=== PATIENT | male | born 1960 | race Hispanic/Latino ===

== ENCOUNTER 2018-07-25 10:29 | Inpatient (IN) | payer OTHER ==
[~2018-07-25] VITALS: Ht 167.6 cm; Wt 68.6 kg
[2018-07-25 11:17] LABS: BASOPHILS % (AUTO) 0.3 % (0.0-5.0); EOSINOPHILS % (AUTO) 1.7 % (0.0-8.0); HEMATOCRIT 43.2 % (42-54); LYMPHOCYTES % (AUTO) 23.4 % (21.0-51.0); MEAN CORPUSCULAR HEMOGLOBIN 29.8 pg (27.0-33.0); MEAN CORPUSCULAR HGB CONC 33.6 g/dL (32.0-36.0); MEAN CORPUSCULAR VOLUME 88.6 fL (79-99); MONOCYTES % (AUTO) 6.5 % (3.0-13.0); NEUTROPHILS % (AUTO) 68.1 % (40.0-77.0); PLATELET COUNT (AUTO) 313 K/uL (130-400); RED BLOOD CELL COUNT(AUTO) 4.88 MIL/uL (4.50-6.20); RED CELL DISTRIBUTION WIDTH 13.7 % (11.0-15.5); WHITE BLOOD COUNT (AUTO) 8.7 K/uL (4.8-10.8)
[2018-07-25 11:24] LABS: CREATININE 0.5 mg/dL (0.5-1.5); POTASSIUM 3.8 mmol/L (3.5-5.1)
[2018-07-25 11:28] LABS: ALBUMIN 4.1 g/dL (3.5-5.0); BILIRUBIN,TOTAL 0.5 mg/dL (0.2-1.0); TOTAL PROTEIN, SERUM 8.3 g/dL (6.0-8.3)
[2018-07-25] MEDS ORDERED: SODIUM CHLORIDE 0.9% 1000ML 1,000 ML IV ONE (11:33)
[2018-07-25] MEDS ORDERED: SODIUM CHLORIDE 0.9% 1000ML 1,000 ML IV SCH (12:38)
[2018-07-25 15:00] VITALS: BP 149/110
[2018-07-25] MEDS ORDERED: GLIM4TAB3 PO (16:33)
[2018-07-25] MEDS ORDERED: METF-446 PO (16:33)
[2018-07-25] MEDS ORDERED: FA/M1TAB32 PO (16:33)
[2018-07-25] MEDS ORDERED: ATOR20TA65 PO (16:33)
[2018-07-25] MEDS ORDERED: LISI-617 PO (16:33)
[2018-07-25 20:00] VITALS: BP 160/104
[2018-07-25] MEDS ORDERED: MORPHINE SULFATE 2 MG/ML 1ML SYG ONE (20:33)
[2018-07-25] MEDS: FAMOTIDINE/PF 20 MG/2 ML VIAL IV SCH (20:37)
[2018-07-25] MEDS: LABETALOL HCL 5 MG/ML 20ML VIAL IV PRN (22:15)
[2018-07-26] VITALS (7 sets, daily range): BP systolic 133–163; BP diastolic 93–101
[2018-07-26] MEDS: MORPHINE SULFATE 2 MG/ML 1ML SYG IV PRN ×2 (00:44→23:43)
[2018-07-26 05:31] LABS: BASOPHILS % (AUTO) 0.5 % (0.0-5.0); EOSINOPHILS % (AUTO) 2.6 % (0.0-8.0); HEMATOCRIT 41.1 % (42-54); LYMPHOCYTES % (AUTO) 25.9 % (21.0-51.0); MEAN CORPUSCULAR HEMOGLOBIN 30.6 pg (27.0-33.0); MEAN CORPUSCULAR HGB CONC 34.4 g/dL (32.0-36.0); MEAN CORPUSCULAR VOLUME 89.1 fL (79-99); MONOCYTES % (AUTO) 8.5 % (3.0-13.0); NEUTROPHILS % (AUTO) 62.5 % (40.0-77.0); PLATELET COUNT (AUTO) 317 K/uL (130-400); RED BLOOD CELL COUNT(AUTO) 4.62 MIL/uL (4.50-6.20); RED CELL DISTRIBUTION WIDTH 13.3 % (11.0-15.5); WHITE BLOOD COUNT (AUTO) 8.5 K/uL (4.8-10.8)
[2018-07-26 05:48] LABS: ALBUMIN 3.6 g/dL (3.5-5.0); BILIRUBIN,TOTAL 0.6 mg/dL (0.2-1.0); CREATININE 0.4 mg/dL (0.5-1.5); POTASSIUM 3.7 mmol/L (3.5-5.1); TOTAL PROTEIN, SERUM 7.4 g/dL (6.0-8.3)
[2018-07-26] MEDS ORDERED: DEXTROSE 50%-WATER 50 ML DISP.SYRIN IV ONE (06:06)
[2018-07-26] MEDS ORDERED: DEXTROSE 50%-WATER 50 ML DISP.SYRIN IV PRN (06:15)
[2018-07-26] MEDS ORDERED: GLUCAGON 1MG KIT 1 MG ML IM PRN (06:15)
[2018-07-26] MEDS: DEXTROSE 5 % AND 0.9 % NACL 1,000 ML IV SCH ×2 (06:31→16:15)
[2018-07-26] MEDS: FAMOTIDINE/PF 20 MG/2 ML VIAL IV SCH ×2 (09:00→22:42)
[2018-07-26 16:27] LABS: APPEARANCE,URINE Clear (CLEAR); BILIRUBIN,URINE Negative (NEGATIVE); COLOR,URINE Yellow (YELLOW); GLUCOSE, URINE (UA) Negative (NEGATIVE); KETONES,URINE 40 mg/dL (NEGATIVE); LEUKOCYTE ESTERASE ,URINE Negative (NEGATIVE); NITRATE,URINE Negative (NEGATIVE); OCCULT BLOOD,URINE Negative (NEGATIVE); PH,URINE 5.5 (5.0-8.0); PROTEIN,URINE Negative (NEGATIVE)
[2018-07-26] MEDS: LABETALOL HCL 5 MG/ML 20ML VIAL IV PRN (18:30)
[2018-07-26] MEDS: IPRATROPIUM/ALBUTEROL SULFATE 3 ML SOLUTION IH PRN ×2 (19:14→23:26)
[2018-07-26] MEDS ORDERED: LORAZEPAM 2 MG/ML 1 ML VIAL IVP ONE (23:00)
[2018-07-27] VITALS (13 sets, daily range): BP systolic 140–170; BP diastolic 94–119
[2018-07-27 04:01] LABS: BASOPHILS % (AUTO) 0.5 % (0.0-5.0); EOSINOPHILS % (AUTO) 3.1 % (0.0-8.0); HEMATOCRIT 40.7 % (42-54); LYMPHOCYTES % (AUTO) 24.9 % (21.0-51.0); MEAN CORPUSCULAR HGB CONC 33.7 g/dL (32.0-36.0); MEAN CORPUSCULAR VOLUME 89.1 fL (79-99); MONOCYTES % (AUTO) 9.4 % (3.0-13.0); NEUTROPHILS % (AUTO) 62.1 % (40.0-77.0); PLATELET COUNT (AUTO) 286 K/uL (130-400); RED BLOOD CELL COUNT(AUTO) 4.57 MIL/uL (4.50-6.20); RED CELL DISTRIBUTION WIDTH 13.2 % (11.0-15.5); WHITE BLOOD COUNT (AUTO) 7.8 K/uL (4.8-10.8)
[2018-07-27] MEDS: DEXTROSE 5 % AND 0.9 % NACL 1,000 ML IV SCH ×3 (04:04→21:48)
[2018-07-27 04:10] LABS: CREATININE 0.5 mg/dL (0.5-1.5); POTASSIUM 3.2 mmol/L (3.5-5.1)
[2018-07-27] MEDS: FAMOTIDINE/PF 20 MG/2 ML VIAL IV SCH ×2 (09:01→21:45)
[2018-07-27] MEDS: ENOXAPARIN SODIUM 30 MG/0.3 ML SQ SCH (09:02)
[2018-07-27] MEDS ORDERED: HYDROCORTISONE 2.5% 28GM CREAM TP PRN (10:30)
[2018-07-27] MEDS: LABETALOL HCL 5 MG/ML 20ML VIAL IV PRN (11:33)
[2018-07-27] MEDS: IPRATROPIUM/ALBUTEROL SULFATE 3 ML SOLUTION IH SCH ×3 (14:23→21:32)
[2018-07-27] MEDS ORDERED: LIDOCAINE HCL-MPF 2% 5ML VIAL ONE (18:35)
[2018-07-27] MEDS ORDERED: PROPOFOL 10 MG/ML 20ML VIAL IV ONE (18:35)
[2018-07-27] MEDS ORDERED: SUCCINYLCHOLINE CHLORIDE 20 MG/ML 10 ML VIAL ONE (18:45)
[2018-07-27] MEDS ORDERED: CEFAZOLIN SODIUM 1 GM VIAL ONE (19:00)
[2018-07-27] MEDS: MORPHINE SULFATE 2 MG/ML 1ML SYG IV PRN (21:46)
[2018-07-28] VITALS (7 sets, daily range): BP systolic 127–162; BP diastolic 91–110
[2018-07-28] MEDS: IPRATROPIUM/ALBUTEROL SULFATE 3 ML SOLUTION IH SCH ×6 (02:02→21:56)
[2018-07-28] MEDS: MORPHINE SULFATE 2 MG/ML 1ML SYG IV PRN ×4 (02:22→21:09)
[2018-07-28] MEDS: LABETALOL HCL 5 MG/ML 20ML VIAL IV PRN ×2 (04:35→21:13)
[2018-07-28 04:37] LABS: BASOPHILS % (AUTO) 0.4 % (0.0-5.0); EOSINOPHILS % (AUTO) 1.2 % (0.0-8.0); HEMATOCRIT 42.4 % (42-54); LYMPHOCYTES % (AUTO) 16.2 % (21.0-51.0); MEAN CORPUSCULAR HEMOGLOBIN 30.7 pg (27.0-33.0); MEAN CORPUSCULAR HGB CONC 34.5 g/dL (32.0-36.0); MEAN CORPUSCULAR VOLUME 89.1 fL (79-99); MONOCYTES % (AUTO) 6.9 % (3.0-13.0); NEUTROPHILS % (AUTO) 75.3 % (40.0-77.0); PLATELET COUNT (AUTO) 325 K/uL (130-400); RED BLOOD CELL COUNT(AUTO) 4.76 MIL/uL (4.50-6.20); RED CELL DISTRIBUTION WIDTH 13.5 % (11.0-15.5); WHITE BLOOD COUNT (AUTO) 10.1 K/uL (4.8-10.8)
[2018-07-28] MEDS: DEXTROSE 5 % AND 0.9 % NACL 1,000 ML IV SCH ×2 (04:39→12:34)
[2018-07-28 04:57] LABS: CREATININE 0.4 mg/dL (0.5-1.5); POTASSIUM 3.3 mmol/L (3.5-5.1)
[2018-07-28] MEDS ORDERED: POTASSIUM CHLORIDE 10MEQ/100ML 100 ML IV PRN (08:30)
[2018-07-28] MEDS ORDERED: LIDOCAINE HCL-MPF 1% 2ML VIAL IVP PRN ×2 (08:30→12:30)
[2018-07-28] MEDS: ENOXAPARIN SODIUM 30 MG/0.3 ML SQ SCH (12:18)
[2018-07-28] MEDS: FAMOTIDINE/PF 20 MG/2 ML VIAL IV SCH ×2 (12:18→22:47)
[2018-07-28] MEDS: MULTIVITAMIN WITH MINERALS TABLET PO SCH (12:18)
[2018-07-28] MEDS ORDERED: POTASSIUM CHLORIDE 10% ELIXIR 20 MEQ/15 ML UDCUP ONE (12:23)
[2018-07-28] MEDS: LISINOPRIL 5 MG TABLET PO SCH (12:25)
[2018-07-28] MEDS ORDERED: POTASSIUM CHLORIDE 20MEQ/100ML 100 ML IV PRN (12:30)
[2018-07-28] MEDS ORDERED: POTASSIUM CHLORIDE 20 MEQ ERTAB PO PRN (12:30)
[2018-07-28] MEDS: POTASSIUM CHLORIDE 10% ELIXIR 20 MEQ/15 ML UDCUP PO PRN ×2 (12:39→12:41)
[2018-07-28] MEDS ORDERED: TEMAZEPAM 15 MG CAPSULE ONE (22:42)
[2018-07-28] MEDS ORDERED: TEMAZEPAM 15 MG CAPSULE GT ONE (22:45)
[2018-07-28] MEDS: ATORVASTATIN CALCIUM 20 MG TABLET PO SCH (22:47)
[2018-07-29] MEDS: IPRATROPIUM/ALBUTEROL SULFATE 3 ML SOLUTION IH SCH ×6 (01:58→21:54)
[2018-07-29] MEDS: DEXTROSE 5 % AND 0.9 % NACL 1,000 ML IV SCH ×3 (02:00→23:31)
[2018-07-29 03:35] VITALS: BP 151/102
[2018-07-29] MEDS: LABETALOL HCL 5 MG/ML 20ML VIAL IV PRN ×2 (03:56→11:43)
[2018-07-29] MEDS: MORPHINE SULFATE 2 MG/ML 1ML SYG IV PRN ×3 (03:57→20:09)
[2018-07-29 04:29] LABS: BASOPHILS % (AUTO) 0.2 % (0.0-5.0); EOSINOPHILS % (AUTO) 1.2 % (0.0-8.0); HEMATOCRIT 40.1 % (42-54); LYMPHOCYTES % (AUTO) 18.7 % (21.0-51.0); MEAN CORPUSCULAR HEMOGLOBIN 30.4 pg (27.0-33.0); MEAN CORPUSCULAR HGB CONC 34.4 g/dL (32.0-36.0); MEAN CORPUSCULAR VOLUME 88.5 fL (79-99); MONOCYTES % (AUTO) 8.3 % (3.0-13.0); NEUTROPHILS % (AUTO) 71.6 % (40.0-77.0); PLATELET COUNT (AUTO) 282 K/uL (130-400); RED BLOOD CELL COUNT(AUTO) 4.53 MIL/uL (4.50-6.20); RED CELL DISTRIBUTION WIDTH 13.9 % (11.0-15.5); WHITE BLOOD COUNT (AUTO) 10.3 K/uL (4.8-10.8)
[2018-07-29 04:37] LABS: CREATININE 0.4 mg/dL (0.5-1.5); POTASSIUM 3.4 mmol/L (3.5-5.1)
[2018-07-29 04:49] LABS: ABG HCO3 25.7 mmol/L (21.0-28.0); ABG OXYGEN SATURATION 96.5 % (95.0-99.0); ABG PCO2 41 mmHg (35-48)
[2018-07-29 05:50] VITALS: BP 129/97
[2018-07-29] MEDS: POTASSIUM CHLORIDE 10% ELIXIR 20 MEQ/15 ML UDCUP PO PRN ×2 (05:51→11:54)
[2018-07-29 07:30] VITALS: BP 136/105
[2018-07-29] MEDS: FAMOTIDINE/PF 20 MG/2 ML VIAL IV SCH ×2 (09:17→20:09)
[2018-07-29] MEDS: LISINOPRIL 5 MG TABLET PO SCH (09:18)
[2018-07-29] MEDS: ENOXAPARIN SODIUM 30 MG/0.3 ML SQ SCH (09:19)
[2018-07-29] MEDS: MULTIVITAMIN WITH MINERALS TABLET PO SCH (09:20)
[2018-07-29 11:00] VITALS: BP 162/98
[2018-07-29 15:11] VITALS: BP 150/99
[2018-07-29] MEDS: INSULIN HUMULIN R 100 UNIT/ML 3ML SQ SCH ×2 (16:30→21:00)
[2018-07-29 19:00] VITALS: BP 139/95
[2018-07-29] MEDS: ATORVASTATIN CALCIUM 20 MG TABLET PO SCH (20:09)
[2018-07-29] MEDS ORDERED: TEMAZEPAM 15 MG CAPSULE PO ONE (20:30)
[2018-07-30] VITALS: BP_SYST 145; BP_SYST 146; BP_DIAS 101; BP_DIAS 103
[2018-07-30] MEDS: IPRATROPIUM/ALBUTEROL SULFATE 3 ML SOLUTION IH SCH ×6 (02:07→21:30)
[2018-07-30] MEDS: MORPHINE SULFATE 2 MG/ML 1ML SYG IV PRN ×3 (02:30→17:08)
[2018-07-30 03:57] LABS: BASOPHILS % (AUTO) 0.1 % (0.0-5.0); EOSINOPHILS % (AUTO) 1.7 % (0.0-8.0); LYMPHOCYTES % (AUTO) 18.6 % (21.0-51.0); MEAN CORPUSCULAR HEMOGLOBIN 30.7 pg (27.0-33.0); MEAN CORPUSCULAR HGB CONC 34.3 g/dL (32.0-36.0); MEAN CORPUSCULAR VOLUME 89.3 fL (79-99); NEUTROPHILS % (AUTO) 69.6 % (40.0-77.0); PLATELET COUNT (AUTO) 316 K/uL (130-400); RED BLOOD CELL COUNT(AUTO) 4.59 MIL/uL (4.50-6.20); RED CELL DISTRIBUTION WIDTH 13.5 % (11.0-15.5); WHITE BLOOD COUNT (AUTO) 9.7 K/uL (4.8-10.8)
[2018-07-30 04:00] VITALS: BP 141/91
[2018-07-30 04:05] LABS: CREATININE 0.4 mg/dL (0.5-1.5); POTASSIUM 3.6 mmol/L (3.5-5.1)
[2018-07-30] MEDS: INSULIN HUMULIN R 100 UNIT/ML 3ML SQ SCH ×4 (06:29→21:00)
[2018-07-30 08:05] VITALS: BP 144/95
[2018-07-30] MEDS: FAMOTIDINE/PF 20 MG/2 ML VIAL IV SCH ×2 (09:45→21:27)
[2018-07-30] MEDS: LISINOPRIL 5 MG TABLET PO SCH (09:45)
[2018-07-30] MEDS: MULTIVITAMIN WITH MINERALS TABLET PO SCH (09:45)
[2018-07-30] MEDS: POTASSIUM CHLORIDE 10% ELIXIR 20 MEQ/15 ML UDCUP PO PRN (09:46)
[2018-07-30] MEDS: DEXTROSE 5 % AND 0.9 % NACL 1,000 ML IV SCH ×2 (10:42→21:32)
[2018-07-30 12:17] VITALS: BP 143/99
[2018-07-30 16:07] VITALS: BP 145/103
[2018-07-30] MEDS: METOCLOPRAMIDE 10 MG/2 ML VIAL IVP SCH (17:08)
[2018-07-30] MEDS: LABETALOL HCL 5 MG/ML 20ML VIAL IV PRN (17:17)
[2018-07-30] MEDS ORDERED: METOPROLOL TARTRATE 1 MG/ML 5ML VIAL IV SCH (18:15)
[2018-07-30 20:28] VITALS: BP 140/102
[2018-07-30] MEDS: POLYETHYLENE GLYCOL 3350 17 GM POWD.PACK PO SCH (21:27)
[2018-07-30] MEDS: METOPROLOL TARTRATE 25 MG TAB PO SCH (21:27)
[2018-07-30] MEDS: LIDOCAINE 5% TOPICAL PATCH TP SCH (21:27)
[2018-07-30] MEDS: ATORVASTATIN CALCIUM 20 MG TABLET PO SCH (21:27)
[2018-07-31] MEDS: LABETALOL HCL 5 MG/ML 20ML VIAL IV PRN (00:24)
[2018-07-31 01:08] VITALS: BP 162/112
[2018-07-31] MEDS: MORPHINE SULFATE 2 MG/ML 1ML SYG IV PRN ×4 (02:06→22:06)
[2018-07-31] MEDS: IPRATROPIUM/ALBUTEROL SULFATE 3 ML SOLUTION IH SCH ×5 (02:54→18:06)
[2018-07-31 04:00] VITALS: BP 125/83
[2018-07-31 04:13] LABS: ABG BASE EXCESS 2.9 mmol/L (-2.0-3.0); ABG HCO3 27.4 mmol/L (21.0-28.0); ABG OXYGEN SATURATION 96.1 % (95.0-99.0); ABG PCO2 41 mmHg (35-48)
[2018-07-31 04:53] LABS: BASOPHILS % (AUTO) 0.3 % (0.0-5.0); EOSINOPHILS % (AUTO) 1.4 % (0.0-8.0); HEMATOCRIT 40.3 % (42-54); LYMPHOCYTES % (AUTO) 17.2 % (21.0-51.0); MEAN CORPUSCULAR HEMOGLOBIN 29.3 pg (27.0-33.0); MEAN CORPUSCULAR VOLUME 88.7 fL (79-99); MONOCYTES % (AUTO) 10.5 % (3.0-13.0); NEUTROPHILS % (AUTO) 70.6 % (40.0-77.0); PLATELET COUNT (AUTO) 310 K/uL (130-400); RED BLOOD CELL COUNT(AUTO) 4.54 MIL/uL (4.50-6.20); RED CELL DISTRIBUTION WIDTH 13.4 % (11.0-15.5); WHITE BLOOD COUNT (AUTO) 11.9 K/uL (4.8-10.8)
[2018-07-31 05:08] LABS: ALBUMIN 3.3 g/dL (3.5-5.0); BILIRUBIN,TOTAL 0.6 mg/dL (0.2-1.0); CREATININE 0.5 mg/dL (0.5-1.5); MAGNESIUM 1.8 mg/dL (1.80-2.40); PHOSPHORUS 4.1 mg/dL (2.5-4.9); TOTAL PROTEIN, SERUM 7.7 g/dL (6.0-8.3)
[2018-07-31] MEDS: METOCLOPRAMIDE 10 MG/2 ML VIAL IVP SCH (06:34)
[2018-07-31] MEDS: INSULIN HUMULIN R 100 UNIT/ML 3ML SQ SCH ×3 (06:34→18:39)
[2018-07-31] MEDS: DEXTROSE 5 % AND 0.9 % NACL 1,000 ML IV SCH ×2 (06:38→13:02)
[2018-07-31] MEDS: METOCLOPRAMIDE 5 MG TABLET PO SCH ×3 (06:54→17:47)
[2018-07-31 08:00] VITALS: BP 153/107
[2018-07-31] MEDS: LIDOCAINE 5% TOPICAL PATCH TP SCH ×2 (09:00→21:00)
[2018-07-31] MEDS ORDERED: FENTANYL 50 MCG/HR PATCH TD SCH ×2 (09:30→23:30)
[2018-07-31] MEDS ORDERED: LORAZEPAM 0.5 MG TABLET PO PRN (09:30)
[2018-07-31] MEDS: FAMOTIDINE/PF 20 MG/2 ML VIAL IV SCH ×2 (09:50→22:15)
[2018-07-31] MEDS: LISINOPRIL 5 MG TABLET PO SCH (09:51)
[2018-07-31] MEDS: MULTIVITAMIN WITH MINERALS TABLET PO SCH (09:51)
[2018-07-31] MEDS: METOPROLOL TARTRATE 25 MG TAB PO SCH (09:51)
[2018-07-31 11:54] VITALS: BP 133/94
[2018-07-31 16:00] VITALS: BP 153/105
[2018-07-31 20:00] VITALS: BP 126/92
[2018-07-31] MEDS: METOPROLOL TARTRATE 50 MG TAB PO SCH (22:14)
[2018-07-31] MEDS: POLYETHYLENE GLYCOL 3350 17 GM POWD.PACK PO SCH (22:14)
[2018-07-31] MEDS: ATORVASTATIN CALCIUM 20 MG TABLET PO SCH (22:14)
[2018-08-01] VITALS (7 sets, daily range): BP systolic 124–140; BP diastolic 82–96
[2018-08-01] MEDS: IPRATROPIUM/ALBUTEROL SULFATE 3 ML SOLUTION IH SCH ×5 (00:30→23:47)
[2018-08-01] MEDS: INSULIN HUMULIN R 100 UNIT/ML 3ML SQ SCH ×5 (01:10→23:35)
[2018-08-01] MEDS: MORPHINE SULFATE 2 MG/ML 1ML SYG IV PRN ×3 (02:15→18:58)
[2018-08-01] MEDS: TEMAZEPAM 15 MG CAPSULE GT PRN ×2 (02:15→21:43)
[2018-08-01 03:56] LABS: BASOPHILS % (AUTO) 0.5 % (0.0-5.0); EOSINOPHILS % (AUTO) 2.4 % (0.0-8.0); LYMPHOCYTES % (AUTO) 15.8 % (21.0-51.0); MEAN CORPUSCULAR HEMOGLOBIN 30.7 pg (27.0-33.0); MEAN CORPUSCULAR HGB CONC 34.3 g/dL (32.0-36.0); MEAN CORPUSCULAR VOLUME 89.4 fL (79-99); MONOCYTES % (AUTO) 10.1 % (3.0-13.0); NEUTROPHILS % (AUTO) 71.2 % (40.0-77.0); PLATELET COUNT (AUTO) 370 K/uL (130-400); RED BLOOD CELL COUNT(AUTO) 4.47 MIL/uL (4.50-6.20); RED CELL DISTRIBUTION WIDTH 13.5 % (11.0-15.5); WHITE BLOOD COUNT (AUTO) 10.9 K/uL (4.8-10.8)
[2018-08-01 04:16] LABS: CREATININE 0.5 mg/dL (0.5-1.5)
[2018-08-01] MEDS: METOCLOPRAMIDE 5 MG TABLET PO SCH ×3 (07:33→16:31)
[2018-08-01] MEDS: FAMOTIDINE/PF 20 MG/2 ML VIAL IV SCH (08:40)
[2018-08-01] MEDS: LISINOPRIL 20 MG TABLET PO SCH (08:41)
[2018-08-01] MEDS: METOPROLOL TARTRATE 50 MG TAB PO SCH ×2 (08:41→21:25)
[2018-08-01] MEDS: MULTIVITAMIN WITH MINERALS TABLET PO SCH (08:41)
[2018-08-01] MEDS: LIDOCAINE 5% TOPICAL PATCH TP SCH (08:41)
[2018-08-01] MEDS: FAMOTIDINE 20MG TAB 20 MG TAB PO SCH (21:25)
[2018-08-01] MEDS: ATORVASTATIN CALCIUM 20 MG TABLET PO SCH (21:25)
[2018-08-01] MEDS: POLYETHYLENE GLYCOL 3350 17 GM POWD.PACK PO SCH (21:25)
[2018-08-02 03:00] VITALS: BP 136/94
[2018-08-02] MEDS: MORPHINE SULFATE 2 MG/ML 1ML SYG IVP PRN ×4 (03:10→21:34)
[2018-08-02 04:33] LABS: BASOPHILS % (AUTO) 0.6 % (0.0-5.0); EOSINOPHILS % (AUTO) 3.5 % (0.0-8.0); HEMATOCRIT 41.8 % (42-54); LYMPHOCYTES % (AUTO) 18.8 % (21.0-51.0); MEAN CORPUSCULAR HEMOGLOBIN 29.7 pg (27.0-33.0); MEAN CORPUSCULAR HGB CONC 33.1 g/dL (32.0-36.0); MEAN CORPUSCULAR VOLUME 89.6 fL (79-99); NEUTROPHILS % (AUTO) 65.1 % (40.0-77.0); PLATELET COUNT (AUTO) 358 K/uL (130-400); RED BLOOD CELL COUNT(AUTO) 4.66 MIL/uL (4.50-6.20); RED CELL DISTRIBUTION WIDTH 13.4 % (11.0-15.5); WHITE BLOOD COUNT (AUTO) 9.9 K/uL (4.8-10.8)
[2018-08-02 05:01] LABS: ALBUMIN 3.4 g/dL (3.5-5.0); BILIRUBIN,TOTAL 0.3 mg/dL (0.2-1.0); CREATININE 0.5 mg/dL (0.5-1.5); MAGNESIUM 1.9 mg/dL (1.80-2.40); PHOSPHORUS 4.6 mg/dL (2.5-4.9); POTASSIUM 4.1 mmol/L (3.5-5.1); TOTAL PROTEIN, SERUM 8.1 g/dL (6.0-8.3)
[2018-08-02] MEDS: INSULIN HUMULIN R 100 UNIT/ML 3ML SQ SCH ×4 (06:06→23:44)
[2018-08-02] MEDS: METOCLOPRAMIDE 5 MG TABLET PO SCH ×3 (06:34→17:19)
[2018-08-02] MEDS: IPRATROPIUM/ALBUTEROL SULFATE 3 ML SOLUTION IH SCH ×4 (06:38→23:51)
[2018-08-02 08:17] VITALS: BP 136/92
[2018-08-02] MEDS ORDERED: ACETAMINOPHEN-CODEINE 300/30MG TAB PO PRN (11:15)
[2018-08-02] MEDS ORDERED: LACTULOSE 20 GM/30 ML UDCUP PO PRN (11:15)
[2018-08-02] MEDS: FAMOTIDINE 20MG TAB 20 MG TAB PO SCH ×2 (11:16→21:08)
[2018-08-02] MEDS: MULTIVITAMIN WITH MINERALS TABLET PO SCH (11:16)
[2018-08-02] MEDS: LISINOPRIL 20 MG TABLET PO SCH (11:17)
[2018-08-02] MEDS: LIDOCAINE 5% TOPICAL PATCH TP SCH (11:17)
[2018-08-02] MEDS: METOPROLOL TARTRATE 50 MG TAB PO SCH ×2 (11:17→21:08)
[2018-08-02] MEDS: ENOXAPARIN SODIUM 30 MG/0.3 ML SQ SCH (11:18)
[2018-08-02 11:55] VITALS: BP 131/87
[2018-08-02 15:54] VITALS: BP 116/73
[2018-08-02 19:00] VITALS: BP 129/86
[2018-08-02] MEDS: POLYETHYLENE GLYCOL 3350 17 GM POWD.PACK PO SCH (21:08)
[2018-08-02] MEDS: ATORVASTATIN CALCIUM 20 MG TABLET PO SCH (21:08)
[2018-08-02] MEDS: TEMAZEPAM 15 MG CAPSULE GT PRN (21:34)
[2018-08-02 23:00] VITALS: BP 111/78
[2018-08-03] MEDS: MORPHINE SULFATE 2 MG/ML 1ML SYG IVP PRN ×4 (02:59→17:24)
[2018-08-03 03:00] VITALS: BP 137/96
[2018-08-03] MEDS: METOCLOPRAMIDE 5 MG TABLET PO SCH ×2 (05:47→08:15)
[2018-08-03] MEDS: INSULIN HUMULIN R 100 UNIT/ML 3ML SQ SCH ×2 (05:55→12:45)
[2018-08-03] MEDS: IPRATROPIUM/ALBUTEROL SULFATE 3 ML SOLUTION IH SCH (06:46)
[2018-08-03 07:00] VITALS: BP 146/80
[2018-08-03] MEDS: METOPROLOL TARTRATE 50 MG TAB PO SCH (08:13)
[2018-08-03] MEDS: FAMOTIDINE 20MG TAB 20 MG TAB PO SCH (08:14)
[2018-08-03] MEDS: MULTIVITAMIN WITH MINERALS TABLET PO SCH (08:14)
[2018-08-03] MEDS: LISINOPRIL 20 MG TABLET PO SCH (08:14)
[2018-08-03] MEDS: ENOXAPARIN SODIUM 30 MG/0.3 ML SQ SCH (08:15)
[2018-08-03] MEDS: LIDOCAINE 5% TOPICAL PATCH TP SCH (08:16)
[2018-08-03 11:00] VITALS: BP 151/104
[2018-08-03] MEDS ORDERED: TYL3B PO (11:13)
[2018-08-03] MEDS ORDERED: POLY17PO4 PO (11:13)
[2018-08-03] MEDS ORDERED: BISACODYL 10 MG SUPP.RECT RC SCH (11:15)
[2018-08-03] MEDS ORDERED: METHYLPREDNISOLONE SOD SUCC 125MG/2ML VIAL IVP SCH (13:45)
[2018-08-03 16:00] VITALS: BP 144/97
[2018-08-03] MEDS ORDERED: FENTANYL 25 MCG/HR PATCH TD ONE (17:53)
== END 2018-08-03 18:23 | disposition hospice, home (50) | DRG 57 ==
LOC: EDH 10:29 → EDHIP 10:30 → 3AH 15:13
PROVIDERS: ADMIT Hospitalist; ATTEND Hospitalist
PROC: 0DJ08ZZ Inspection of Upper Intestinal Tract, Via Natural or Artificial Opening Endoscopic (ICD-10-PCS; principal; 2018-07-27)
PROC: 0DH63UZ Insertion of Feeding Device into Stomach, Percutaneous Approach (ICD-10-PCS; 2018-07-28)
DX: G12.21 Amyotrophic lateral sclerosis (principal); K56.0 Paralytic ileus; G72.9 Myopathy, unspecified; E11.9 Type 2 diabetes mellitus without complications; E78.5 Hyperlipidemia, unspecified; F41.9 Anxiety disorder, unspecified; I10 Essential (primary) hypertension; I16.0 Hypertensive urgency; J98.4 Other disorders of lung; R13.10 Dysphagia, unspecified; R53.81 Other malaise; R13.12 Dysphagia, oropharyngeal phase; K29.50 Unspecified chronic gastritis without bleeding; L25.9 Unspecified contact dermatitis, unspecified cause; Z87.891 Personal history of nicotine dependence; Z88.6 Allergy status to analgesic agent
CPT/HCPCS: 36415; 36600; 70450; 71045; 74018; 74230; 80048; 80053; 81003; 82803; 82948; 83605; 83735; 84100; 85025; 92610; 92611; 93005; 93880; 94010; 94150; 94640; 94660; 94664; 94667; 94668; 97039; J0330; J0690; J1650; J1815; J2060; J2704; J2765; J2930; J3490; J7030; J7042; J7070